=== PATIENT | female | born 1940 | race Caucasian/White ===

== ENCOUNTER 2025-06-21 15:07 | Emergency (ER) | payer MEDICARE, SELFPAY ==
[2025-06-21] VITALS (12 sets, daily range): BP systolic 184–240; BP diastolic 78–106; BMI 27.3
[2025-06-21] MEDS: TORADOL 15 MG IV (16:33)
[2025-06-21] MEDS: TRANDATE 10 MG IV (16:34)
[2025-06-21] MEDS: TYLENOL 650 MG PO (16:35)
--- NOTE | 2025-06-21 16:47 | ED.MUSCINJ ---
HPI-Injury
<POP Jaeger - Last Filed: 06/21/25 17:15>
General
Chief Complaint: Musculo-Skeletal Complaint
Source: patient and family (daughter)
Time Seen by Provider: 06/21/25 15:35
History of Present Illness-Injury
Is this injury a work related problem?: No
Is pt an associate of [facility]?: No
Initial Injury comments:
Patient is a 84 y/o female with PMHx of hypothyroidism, osteoporosis, anxiety presents to ED with left elbow pain and swelling after being hit on the right side of the body by elevator and falling onto left side. Patient denies head strike or being
on anticoagulation. Patient admits to throbbing left elbow pain that is constant, rated 2/10 and is currently being treated with ice pack.
Past History
<POP Jaeger - Last Filed: 06/21/25 17:15>
Past History
ED Past Medical History: HTN, Other (Polymyalgia rheumatica, Temporal arteritis) and Other (Right arm Humerus fracture); Negative Asthma, Hypercholesterolemia or NIDDM
ED Past Surgical History: Orthopedic and Other
Social History
Tobacco: Former smoker
Alcohol: None
Personal:
Living: with family
Employment: Retired
Family History
Family History: Other (Noncontributory)
Review of Systems
<POP Jaeger - Last Filed: 06/21/25 17:15>
Review of Systems
Allergies reviewed?: Yes
Other source history: family (daughter)
EENT: Reports other (no double vision or blurry vision )
Respiratory: Reports no symptoms
Cardiac: Reports no symptoms
ABD/GI: Reports no symptoms
Musculoskeletal: Reports joint pain (Left elbow) and joint swelling (left elbow); Denies neck pain
Neurological: Denies dizzy or headache
Musculoskeletal Injury Exam
<Cindy ST LupeNH - Last Filed: 06/21/25 17:15>
Musculoskeletal Injury Exam
Left Posterior Elbow:
Pain with Movement?: Moderate
Tender to palpation?: Moderate
Soft tissue swelling?: Severe
External deformity and angulation?: Mild
Injury Course
<Cindy ST LupeNH - Last Filed: 06/21/25 17:15>
Orders/Labs/Results
Orders:
Orders
06/21/25 15:48
CR Elbow - Left Min 3 Views Urgent
Comment:
Reason For Exam: trauma
06/21/25 16:28
Labetalol HCl [Trandate] 10 mg IV NOW STA
06/21/25 16:29
Acetaminophen [Tylenol] 650 mg PO NOW STA
Ketorolac [Toradol] 15 mg IV NOW STA
06/21/25 16:30
Acetaminophen [Tylenol] 650 mg .ROUTE .STK-MED ONE
06/21/25 16:31
Ketorolac [Toradol] 15 mg .ROUTE .STK-MED ONE
06/21/25 16:45
Complete Blood Count/No Diff Urgent
Comprehensive Metabolic Panel Urgent
06/21/25 17:09
Labetalol HCl [Trandate] 20 mg .ROUTE .STK-MED ONE
Labetalol HCl [Trandate] 20 mg IV NOW STA
Abnormal Lab Results
06/21/25
16:45
RBC 3.74 L 10^6/uL
(4.20-5.40)
Hgb 11.9 L g/dL
(12.0-16.0)
Hct 34.9 L %
(37.0-47.0)
MCH 31.8 H pg
(27.0-31.0)
06/21/25 16:45
06/21/25 16:45
<Clem Nye MD - Last Filed: 06/21/25 22:29>
Orders/Labs/Results
Orders:
Orders
06/21/25 15:48
CR Elbow - Left Min 3 Views Urgent
Comment:
Reason For Exam: trauma
06/21/25 16:28
Labetalol HCl [Trandate] 10 mg IV NOW STA
06/21/25 16:29
Acetaminophen [Tylenol] 650 mg PO NOW STA
Ketorolac [Toradol] 15 mg IV NOW STA
06/21/25 16:30
Acetaminophen [Tylenol] 650 mg .ROUTE .STK-MED ONE
06/21/25 16:31
Ketorolac [Toradol] 15 mg .ROUTE .STK-MED ONE
06/21/25 16:45
Complete Blood Count/No Diff Urgent
Comprehensive Metabolic Panel Urgent
06/21/25 17:09
Labetalol HCl [Trandate] 20 mg .ROUTE .STK-MED ONE
Labetalol HCl [Trandate] 20 mg IV NOW STA
Abnormal Lab Results
06/21/25
16:45
RBC 3.74 L 10^6/uL
(4.20-5.40)
Hgb 11.9 L g/dL
(12.0-16.0)
Hct 34.9 L %
(37.0-47.0)
MCH 31.8 H pg
(27.0-31.0)
06/21/25 16:45
06/21/25 16:45
<POP Jaeger - Last Filed: 06/21/25 17:15>
*Pulse Oximetry
SaO2: 97
Oxygen Mode of Delivery: Room air
ED Attending Note
<POP Jaeger - Last Filed: 06/21/25 17:15>
-
Portions of this chart may have been created with voice recognition software.� Occasional wrong word or��sound alike� substitutions may have occurred due to the inherent limitations of voice recognition software.
<Clem Nye MD - Last Filed: 06/21/25 22:29>
ED Attending Note
Patient seen and examined by attending physician: Yes
ED Attending Note:
Patient presents to ED for evaluation secondary to left elbow pain with swelling, after she was knocked off balance by closing elevator door, causing her to fall onto her lower left arm. Patient denies any other injuries from the fall. Denies loss
of sensation or weakness. Denies headache. Denies neck pain. Denies loss of sensation or weakness. Upon arrival, patient is found to be hypertensive, which patient was not aware of. Patient does not have a history of hypertension.
Physical Exam
General: no apparent distress, not acutely ill. afebrile. hypertensive
Head: nc/at. eomi
Neck: supple. normal range of motion
Heart: s1/s2 regular rate and rhythm
Lungs: no acute respiratory distress. clear bilaterally. chest wall nontender to palpation
Abdomen: normal bowel sounds. not tender.
Neuro: alert and oriented x 2. no focal neurological deficits
Skin: no rash
Psychiatric: well kept. interactive and cooperative
Extremities: Left olecranon swelling with tenderness noted on palpation. No obvious deformity.
X-ray report reviewed and discussed with patient and daughter. Displaced fracture noted without dislocation. Patient otherwise remains neurovascular intact. Patient will be provided with sugar-tong splint along with arm sling, with recommendation
to follow-up with orthopedic surgery as an outpatient. Daughter states that she knows Dr. Calabrese, orthopaedic surgery, personally, and will follow-up with him as an outpatient. Initial severe hypertension improved with medication. Patient will be
advised to follow-up with her primary care physician for reevaluation, including repeat blood pressure. Will not start any antihypertensives at this time. Patient and daughter expressed understanding at time of discharge.
Discharge Plan
Departure
Patient Disposition: Half-Way/SNF
Date of Disposition: 06/21/25
Time of Disposition: 19:11
Condition: Fair
Discharge Problem:
Elbow fracture, left, Hypertension
Instructions: High blood pressure in adults, Elbow Fracture, Adult ED
Prescriptions:
No Action
folic acid 1 MG tablet
1 mg PO DAILY
Patient Comments:
levothyroxine 50 MCG tablet
50 mcg PO DAILY
bupropion HCl 150 MG tablet extended release 24 hr
150 mg PO DAILY
acetaminophen [Tylenol Extra Strength] 500 MG tablet
1,000 mg PO Q6HPRN PRN (Reason: mild pain)
escitalopram oxalate [Lexapro] 20 mg Tablet
20 mg PO DAILY
Referrals:
Ricky Calabrese MD [Active, Orthopedics]
Chapito Balderas MD [Family Provider, Internal Medicine]
Activity Restrictions/Additional Instructions:
As discussed, please follow-up with your primary care physician and referred orthopedic surgeon for further evaluation and treatment, including repeat blood pressure.
Interventions
Interventions:
*Risk Screen - Suicide Last Done: 06/21/25 15:14
*General Assessment Last Done: 06/21/25 15:14
*Neglect/Abuse Screening Last Done: 06/21/25 15:14
*ED- Fall Risk Assessment Last Done: 06/21/25 15:14
*ED COVID-19 Vaccine History Last Done: 06/21/25 15:14
*Nursing Disposition Last Done: 06/21/25 19:47
ED-Musculoskeletal Assessment Last Done: 06/21/25 15:20
Discharge Date and Time
Discharge Date/Time: 06/21/25 19:48
Print Language: MALAWIAN
[2025-06-21 16:57] LABS: Hematocrit 34.9 % (37.0-47.0); Hemoglobin 11.9 g/dL (12.0-16.0); Mean Corp Hgb Conc. 34.1 g/dL (33.0-37.0); Mean Corpuscular Volume 93.3 fL (81.0-99.0); Platelet Count 263 10^3/uL (130-400); Red Cell Dist. Width 14.2 % (11.5-14.5)
[2025-06-21 17:13] LABS: ALT (SGPT) 13 U/L (0-35); AST (SGOT) 22 U/L (14-36); Albumin 4.2 g/dl (3.5-5.0); Alkaline Phosphatase 71 U/L (38-126); Blood Urea Nitrogen 14 mg/dl (7-17); Calcium 9.1 mg/dl (8.4-10.2); Carbon Dioxide 27 mmol/L (22-30); Chloride 100 mmol/L (98-107); Estimated Creatinine Clearance 50 ml/min; Glucose 87 mg/dl (70-99); Potassium 3.8 mmol/L (3.5-5.1); Sodium 135 mmol/L (135-145); Total Protein 7.4 g/dl (6.3-8.2); eGFR > 60.00
[2025-06-21] MEDS: TRANDATE 20 MG IV (17:17)
== END 2025-06-21 19:48 ==
LOC: EMR 15:07
PROVIDERS: EMERGENCY PHYSICIAN Emergency Medicine; FAMILY PHYSICIAN Internal Medicine
DX: S52.022A Displaced fracture of olecranon process without intraarticular extension of left ulna, initial encounter for closed fracture (principal); W20.8XXA Other cause of strike by thrown, projected or falling object, initial encounter; W18.39XA Other fall on same level, initial encounter; E03.9 Hypothyroidism, unspecified; M81.0 Age-related osteoporosis without current pathological fracture; F41.9 Anxiety disorder, unspecified; M35.3 Polymyalgia rheumatica; M31.6 Other giant cell arteritis; Z87.891 Personal history of nicotine dependence
CPT/HCPCS: 99284; 96374; 96375; 96376 ×2; 73080; 80053; 85027